=== PATIENT | male | born 1950 | race Caucasian/White ===

== ENCOUNTER 2019-09-19 12:57 | Inpatient (IN) | payer MEDICARE, BC ==
[~2019-09-19] VITALS: Ht 185.4 cm; Wt 85.4 kg
--- NOTE | 2019-09-19 13:22 | NUR ---
REPORT RECEIVED FROM FRANCHESCA SKAGGS. [facility].
--- NOTE | 2019-09-19 13:23 | NUR ---
PT LORI FROM [facility]. PT STATES HE WAS HAULING HEAVY TRASH 2 DAYS AGO, PT STATES AT MIDNIGHT THAT EVENING HE BEGAN TO HAVE STERNAL CHEST PAIN RADIATING TO BILATERAL ARMS AND JAW. PAIN HAS BEEN INTERMITTENT SINCE THEN, PT STATES THAT LAST NIGHT BETWEEN [id number] PAIN INTENSIFIED SO HE PRESENTED TO [facility] FOR WORKUP. PT GIVEN 80MG LOVENOX AND 325 MG ASA AT [facility] THIS AM. PT NOW DENIES PAIN. PT HAS HX LA WITH STENT, PT STATES SYMPTOMS ARE SIMILAR. EKG OBTAINED BY EDT ON ARRIVAL, PT ATTACHED TO ALL MONITORS. CALL LIGHT IN REACH. REPORT GIVEN TO FRANCHESCA FINLEY AT BEDSIDE.
[2019-09-19] MEDS: LABETALOL 5MG/ML, 20ML IVPush ONE ×2 (13:30→13:49)
[2019-09-19] MEDS ORDERED: LORazepam 2 MG/ML, 1ML IVPush ONE (13:30)
[2019-09-19] MEDS ORDERED: SODIUM CHLORIDE FLUSH 10ML SYR IVF ONE (13:30)
[2019-09-19 13:32] LABS: BASOPHILS # (AUTO) 0.03 x10^3/uL (0-0.1); BASOPHILS % (AUTO) 0 % (0-1); EOSINOPHILS # (AUTO) 0.04 x10^3/uL (0-0.4); EOSINOPHILS % (AUTO) 0 % (1-7); LYMPHOCYTES # (AUTO) 1.66 x10^3/uL (1-3.4); LYMPHOCYTES % (AUTO) 15 % (22-44); MD NO; MEAN CORPUSCULAR HEMOGLOBIN 31.5 pg (27.5-34.5); MEAN CORPUSCULAR HGB CONC 33.2 g/dL (33.2-36.2); MEAN PLATELET VOLUME 9.8 fL (7.4-10.4); MONOCYTES # (AUTO) 0.37 x10^3/uL (0.2-0.8); MONOCYTES % (AUTO) 3 % (2-9); NEUTROPHILS # (AUTO) 9.21 x10^3/uL (1.8-6.8); NEUTROPHILS % (AUTO) 82 % (42-75); PLATELET COUNT 244 x10^3/uL (130-400); RED BLOOD COUNT 4.93 x10^6/uL (4.38-5.82); RED CELL DISTRIBUTION WIDTH 14.4 % (9.4-14.8)
[2019-09-19] MEDS ORDERED: LABETALOL 5MG/ML, 20ML ONE (13:43)
[2019-09-19] MEDS ORDERED: LORazepam 2 MG/ML, 1ML ONE (13:43)
[2019-09-19 13:45] LABS: ALBUMIN 3.6 g/dL (3.4-5.0); ANION GAP 6 mmol/L (5-15); CALCIUM 8.9 mg/dL (8.5-10.1); CHLORIDE 105 mmol/L (98-107)
[2019-09-19 13:50] LABS: INTERNATIONAL NORMALIZED RATIO 1.08 (0.93-1.1); PROTHROMBIN TIME 11.5 Seconds (9.6-11.5)
[2019-09-19 13:53] LABS: ALANINE AMINOTRANSFERASE 61 U/L (12-78); ALKALINE PHOSPHATASE 66 U/L (45-117); BILIRUBIN,TOTAL 0.5 mg/dL (0.2-1.0); CREATININE 0.88 mg/dL (0.7-1.3); TOTAL PROTEIN 6.9 g/dL (6.4-8.2)
[2019-09-19] MEDS ORDERED: BISACODYL 10 MG SUPP PR PRN (14:00)
[2019-09-19] MEDS ORDERED: ACETAMINOPHEN 325 MG TABLET PO PRN (14:00)
[2019-09-19] MEDS ORDERED: MORPHINE SULFATE 4 MG/ML, 1ML IVPush PRN (14:00)
[2019-09-19] MEDS ORDERED: NITROGLYCERIN 0.4 MG BOTTLE (25 TABS) SL PRN (14:00)
[2019-09-19] MEDS ORDERED: ONDANSETRON ODT 4 MG PO PRN (14:00)
[2019-09-19] MEDS ORDERED: HEPARIN 5,000 UNITS/ML, 1ML ONE (14:21)
[2019-09-19] MEDS ORDERED: HEPARIN 25,000 UNITS/250ML PMX 250 ML ONE (14:21)
[2019-09-19] MEDS ORDERED: HEPARIN 5,000 UNITS/ML, 1ML IV PRN (14:30)
[2019-09-19] MEDS ORDERED: HEPARIN 5,000 UNITS/ML, 1ML IV ONE (14:30)
[2019-09-19] MEDS: HEPARIN 25,000 UNITS/250ML PMX 250 ML IV PRN (14:30)
--- NOTE | 2019-09-19 14:45 | NUR ---
Break RN. Pt Transfered to Floor with tech on monitor. Pt has all own belingings upon time of transfer.
[2019-09-19 14:49] VITALS: BP 107/74
[2019-09-19] MEDS ORDERED: ASPI-515 PO (15:14)
[2019-09-19] MEDS ORDERED: METO5VIA PO (15:14)
[2019-09-19] MEDS ORDERED: LOSA50TA14 PO (15:14)
[2019-09-19] MEDS ORDERED: LEVO25PO PO (15:14)
[2019-09-19] MEDS ORDERED: EZET10TA70 PO (15:14)
[2019-09-19] MEDS ORDERED: LORA-446 PO (15:14)
[2019-09-19] MEDS ORDERED: OMEP-110 PO (15:14)
[2019-09-19] MEDS ORDERED: GLIP2.5T3 PO (15:14)
[2019-09-19] MEDS: SODIUM CHLORIDE 0.9% 1,000 ML IV SCH (15:54)
[2019-09-19 17:03] VITALS: BP 117/73
[2019-09-19] MEDS: CARVEDILOL 3.125 MG TABLET PO SCH (17:04)
[2019-09-19 20:00] VITALS: BP 103/72
[2019-09-19] MEDS: ATORVASTATIN 40 MG TABLET PO SCH (21:59)
[2019-09-20] VITALS (8 sets, daily range): BP systolic 95–117; BP diastolic 58–76
[2019-09-20] MEDS: OMEPRAZOLE 20 MG CAPSULE.DR PO SCH ×3 (02:13→20:11)
[2019-09-20] MEDS: LORazepam 1MG TABLET PO SCH ×3 (02:13→20:11)
[2019-09-20 02:27] LABS: BASOPHILS # (AUTO) 0.05 x10^3/uL (0-0.1); BASOPHILS % (AUTO) 1 % (0-1); EOSINOPHILS # (AUTO) 0.15 x10^3/uL (0-0.4); EOSINOPHILS % (AUTO) 1 % (1-7); LYMPHOCYTES # (AUTO) 2.04 x10^3/uL (1-3.4); LYMPHOCYTES % (AUTO) 20 % (22-44); MD NO; MEAN CORPUSCULAR HEMOGLOBIN 31.3 pg (27.5-34.5); MEAN CORPUSCULAR HGB CONC 32.9 g/dL (33.2-36.2); MEAN CORPUSCULAR VOLUME 95.2 fL (81-97); MEAN PLATELET VOLUME 9.5 fL (7.4-10.4); MONOCYTES # (AUTO) 0.63 x10^3/uL (0.2-0.8); MONOCYTES % (AUTO) 6 % (2-9); NEUTROPHILS # (AUTO) 7.58 x10^3/uL (1.8-6.8); NEUTROPHILS % (AUTO) 73 % (42-75); PLATELET COUNT 207 x10^3/uL (130-400); RED BLOOD COUNT 4.78 x10^6/uL (4.38-5.82); RED CELL DISTRIBUTION WIDTH 14.7 % (9.4-14.8)
[2019-09-20 02:40] LABS: ALANINE AMINOTRANSFERASE 58 U/L (12-78); ALBUMIN 3.1 g/dL (3.4-5.0); ANION GAP 8 mmol/L (5-15); CALCIUM 8.9 mg/dL (8.5-10.1); CHLORIDE 108 mmol/L (98-107); CREATININE 0.83 mg/dL (0.7-1.3)
[2019-09-20 02:42] LABS: ALKALINE PHOSPHATASE 63 U/L (45-117); BILIRUBIN,TOTAL 0.3 mg/dL (0.2-1.0); TOTAL PROTEIN 6.3 g/dL (6.4-8.2)
[2019-09-20] MEDS: ASPIRIN 325 MG TABLET EC PO SCH (06:00)
[2019-09-20] MEDS: CARVEDILOL 3.125 MG TABLET PO SCH ×2 (06:00→17:29)
[2019-09-20] MEDS: SODIUM CHLORIDE 0.9% 1,000 ML IV SCH (08:59)
[2019-09-20] MEDS: SENNA/DOCUSATE TABLET PO SCH (09:01)
[2019-09-20] MEDS: HEPARIN 25,000 UNITS/250ML PMX 250 ML IV PRN (09:06)
[2019-09-20] MEDS: ATORVASTATIN 40 MG TABLET PO SCH (20:11)
[2019-09-21 01:22] VITALS: BP 122/74
[2019-09-21] MEDS: SODIUM CHLORIDE 0.9% 1,000 ML IV SCH ×2 (02:16→17:38)
[2019-09-21] MEDS: CARVEDILOL 3.125 MG TABLET PO SCH ×2 (05:29→17:35)
[2019-09-21] MEDS: ASPIRIN 325 MG TABLET EC PO SCH (05:29)
[2019-09-21 05:32] LABS: ANION GAP 4 mmol/L (5-15); CALCIUM 8.6 mg/dL (8.5-10.1); CHLORIDE 108 mmol/L (98-107)
[2019-09-21 05:36] LABS: ALANINE AMINOTRANSFERASE 54 U/L (12-78); ALKALINE PHOSPHATASE 73 U/L (45-117); BILIRUBIN,TOTAL 0.5 mg/dL (0.2-1.0); TOTAL PROTEIN 6.2 g/dL (6.4-8.2)
[2019-09-21 08:35] VITALS: BP 115/67
[2019-09-21] MEDS: HEPARIN 25,000 UNITS/250ML PMX 250 ML IV PRN (08:38)
[2019-09-21] MEDS: SENNA/DOCUSATE TABLET PO SCH (08:39)
[2019-09-21] MEDS: LORazepam 1MG TABLET PO SCH ×2 (08:39→21:16)
[2019-09-21] MEDS: OMEPRAZOLE 20 MG CAPSULE.DR PO SCH ×2 (08:39→21:16)
[2019-09-21] MEDS ORDERED: SODIUM CHLORIDE 0.9% 1,000 ML IV SCH ×2 (09:00→12:50)
[2019-09-21] MEDS ORDERED: MIDAZOLAM 1 MG/ML, 5ML ONE (11:47)
[2019-09-21] MEDS ORDERED: HEPARIN 1,000 UNITS/ML, 10ML ONE (11:48)
[2019-09-21] MEDS ORDERED: LIDOCAINE 2%, 20ML ONE (11:48)
[2019-09-21] MEDS ORDERED: VERAPAMIL 2.5 MG/ML, 2ML ONE (11:48)
[2019-09-21] MEDS ORDERED: FENTANYL PF 100 MCG/2ML ONE (11:48)
[2019-09-21] MEDS ORDERED: TICAGRELOR 90 MG TABLET ONE (11:48)
[2019-09-21] MEDS ORDERED: BIVALIRUDIN 250 MG ONE (11:48)
[2019-09-21 13:00] VITALS: BP 103/59
[2019-09-21] MEDS: ASPIRIN 81 MG TABLET EC PO SCH (13:52)
[2019-09-21 17:32] VITALS: BP 110/59
[2019-09-21 19:47] VITALS: BP 105/60
[2019-09-21] MEDS: TICAGRELOR 90 MG TABLET PO SCH (21:16)
[2019-09-21] MEDS: ATORVASTATIN 40 MG TABLET PO SCH (21:16)
[2019-09-22 01:44] VITALS: BP 110/72
[2019-09-22] MEDS: CARVEDILOL 3.125 MG TABLET PO SCH (05:29)
[2019-09-22 06:29] LABS: ANION GAP 5 mmol/L (5-15); CALCIUM 9.2 mg/dL (8.5-10.1); CHLORIDE 108 mmol/L (98-107); CREATININE 0.78 mg/dL (0.7-1.3)
[2019-09-22 07:24] VITALS: BP 124/69
[2019-09-22] MEDS: SENNA/DOCUSATE TABLET PO SCH (08:36)
[2019-09-22] MEDS: TICAGRELOR 90 MG TABLET PO SCH (08:36)
[2019-09-22] MEDS: OMEPRAZOLE 20 MG CAPSULE.DR PO SCH (08:36)
[2019-09-22] MEDS: LORazepam 1MG TABLET PO SCH (08:37)
[2019-09-22] MEDS: ASPIRIN 81 MG TABLET EC PO SCH (08:37)
[2019-09-22] MEDS ORDERED: LACTOBACILLUS CHEW TABLET PO SCH (09:00)
[2019-09-22] MEDS ORDERED: TICA90TA PO (09:46)
[2019-09-22] MEDS ORDERED: CARV3.1212 PO (09:46)
[2019-09-22] MEDS ORDERED: ACID1TAB7 PO (09:46)
[2019-09-22] MEDS ORDERED: NITR0.4T28 SL (09:46)
[2019-09-22] MEDS ORDERED: ATOR40TA78 PO (09:46)
[2019-09-22] MEDS ORDERED: HYDR-3341 PO (09:46)
[2019-09-22] MEDS: SODIUM CHLORIDE 0.9% 1,000 ML IV SCH (11:20)
== END 2019-09-22 13:10 | disposition home or self-care (01) | DRG 246 ==
LOC: ED 13:24 → EDIP 13:25 → ED 13:37 → 5SO 14:44
PROVIDERS: ADMIT Internal Medicine; ATTEND Internal Medicine
PROC: 027034Z Dilation of Coronary Artery, One Artery with Drug-eluting Intraluminal Device, Percutaneous Approach (ICD-10-PCS; principal; 2019-09-21)
PROC: 4A023N7 Measurement of Cardiac Sampling and Pressure, Left Heart, Percutaneous Approach (ICD-10-PCS; 2019-09-21)
PROC: B2111ZZ Fluoroscopy of Multiple Coronary Arteries using Low Osmolar Contrast (ICD-10-PCS; 2019-09-21)
DX: I21.4 Non-ST elevation (NSTEMI) myocardial infarction (principal); I50.31 Acute diastolic (congestive) heart failure; E03.9 Hypothyroidism, unspecified; Z91.048 Other nonmedicinal substance allergy status; E11.9 Type 2 diabetes mellitus without complications; E78.5 Hyperlipidemia, unspecified; R79.89 Other specified abnormal findings of blood chemistry; I25.10 Atherosclerotic heart disease of native coronary artery without angina pectoris; Z87.891 Personal history of nicotine dependence; Z95.5 Presence of coronary angioplasty implant and graft; I11.0 Hypertensive heart disease with heart failure
CPT/HCPCS: 36415; 80048; 80053; 83880; 84484; 85014; 85018; 85025; 85520; 85610; 93005; 93458; 96374; 96375; 99156; C1769; C1894; C8929; C9600; G0378; J0583; J1644; J2250; J3010; C1725; C1874; C1887; J2060; J7030; Q9967